=== PATIENT | female | born 1985 | race Caucasian/White ===

== ENCOUNTER 2021-04-04 17:17 | Emergency (ER) | payer OTHER, SELFPAY ==
[2021-04-04 17:31] VITALS: BP 128/98; PULSE 64; RESP 18; TEMP 36.9; O2SAT 100
[2021-04-04 17:32] VITALS: BP 128/98; PULSE 64; RESP 18; TEMP 36.9; O2SAT 100
--- NOTE | 2021-04-04 18:03 | ED.URI ---
HPI - URI/Sore Throat General Chief Complaint: Upper Respiratory Infection Stated Complaint: Sore throat Source: patient and RN notes reviewed Limitations: no limitations History of Present Illness HPI Narrative: The vaccinated patient, previously mostly healthy, presents with half week history of sore throat. She was treated for sinusitis with amoxicillin that she completed at the end of the first week of the month . She has no fever, earache, rash; no loss of taste/smell, CP, congestion, shortness of breath, vomiting/diarrhea. Related Data Allergies Allergy/AdvReac Type Severity Reaction Status Date / Time Sulfa (Sulfonamide Allergy Unknown Unknown Verified 04/04/21 17:54 Antibiotics) Review of Systems Review of Systems: The patient has been informed that they may have pre-hypertension or Hypertension based on a BP reading in the department. I recommend that the patient call the primary care provider listed on their discharge instructions or a physician of their choice this week to arrange follow up for further evaluation of possible pre-hypertension or Hypertension General/Constitutional: No weight loss,fever Eyes: N0: Redness,discharge Ears/Nose/Throat: No: Epistaxis,ear discharge Respiratory: Denies: Hemoptysis Gastrointestinal: No Vomiting, Bleeding-rectal Skin: No Lumps, eruption Neurologic: No Focal Weakness,Sz Hematologic: Denies: Petechiae/Purpura Psychiatric: No: Suicida ideationl All Other Systems: Reviewed and Negative PMFSH Family History Family History (Updated 04/08/18 @ 15:18 by DOCTOR UNKNOWN) Grandparent Diabetes mellitus Sibling Family history of mental disorder Depression Social History Social History Smoking status: Never smoker Second hand tobacco smoke exposure: No Alcohol intake: current Comments At time of signature, agree with nursing past medical, surgical, social and family history. There is no relevant family history pertinent to the presenting complaint Exam Narrative: General Appearance: Well appearing, Well nourished EYE: PERRLA, Conjunctiva clear Ears: Auditory canal normal, TM normal Nose: Rhinorrhea, Mucousal erythema Mouth/Throat: MM moist, Uvula midline, Pharyngeal erythema Neck: Supple, No adenopathy Respiratory: No respiratory distress, Breath sounds equal, Clear to auscultation Cardiovascular: RRR, No JVD Musculoskeletal: Non tender, Normal strength Skin: Warm, Dry Neurological: A&O x3, CN II-XII intact Psychiatric: Normal mood, Normal affect Course Vital Signs Vital signs: Vital Signs Temperature 98.4 F 04/04/21 17:31 Pulse Rate 64 04/04/21 17:31 Respiratory Rate 18 04/04/21 17:31 Blood Pressure 128/98 H 04/04/21 17:31 Pulse Oximetry 100 04/04/21 17:31 Temperature 98.4 F 04/04/21 17:32 Pulse Rate 64 04/04/21 17:32 Respiratory Rate 18 04/04/21 17:32 Blood Pressure 128/98 H 04/04/21 17:32 Pulse Oximetry 100 04/04/21 17:32 Discharge Plan Discharge Clinical Impression: Odynophagia Patient Disposition: Home, Self-Care Condition: Stable Instructions: Pharyngitis (ED) Prescriptions: New azithromycin 250 mg tablet See Rx Instructions .ROUTE .COMPLEX Qty: 6 RF: 0 lidocaine HCl [Lidocaine Viscous] 2 % solution 5 ml MUCOUS MEM QID PRN (Reason: pain) Qty: 100 RF: 0 Follow-up/Referrals: UNKNOWN,DOCTOR [Primary Care Provider] -
== END 2021-04-04 18:15 | disposition home or self-care (01) ==
PROVIDERS: Emergency Provider Emergency Medicine
DX: R13.10 Dysphagia, unspecified (principal)
CPT/HCPCS: 99213; G0463

== ENCOUNTER → 2023-06-25 07:49 | Outpatient (CLI) | payer OTHER, SELFPAY ==
--- NOTE | ~2023-06-25 | US_ITS ---
Abdominal Sonogram: Real-time sonographic imaging of the abdomen was performed. Clinical History: Abdominal pain Findings: The liver appears normal with no evidence of mass lesion or bile duct dilatation. Main por mercedes vein demonstrates normal direction of flow. The spleen is normal in size without evidence of foca l lesion. The gallbladder is well distended, and appears normal with no evidence of gallstone or wal l thickening. The common bile duct measures 3 mm. The visualized pancreas, aorta, and IVC are unrema rkable. The right kidney measures 9.9 cm in length and the left kidney measures 10.0 cm. There is n o hydronephrosis or renal calculus. Impression: Unremarkable abdominal ultrasound. Reviewed, dictated and finalized at location . ING AIDE Impression: Unremarkable abdominal ultrasound.
== END ==
PROVIDERS: PCP Family Medicine; Visit Provider Physician Assistant
DX: R10.9 Unspecified abdominal pain (principal)
CPT/HCPCS: 76700

== ENCOUNTER 2024-05-05 11:17 | Outpatient (CLI) | payer OTHER, SELFPAY ==
--- NOTE | ~2024-05-05 | MMUS_ITS ---
EXAMINATION: US breast RT limited, MM diagnostic pratik BI w agueda HISTORY: Palpable right breast abnormality TECHNIQUE: Additional 3-D tomosynthesis images of the right breast were performed and synthetic 2-D i mages were generated. CAD analysis was submitted and interpreted. High resolution Limited right breas t ultrasound was performed. COMPARISON: None BREAST PARENCHYMAL COMPOSITION: Dense: The breasts are extremely dense, which lowers the sensitivity of mammography. FINDINGS: MAMMOGRAPHIC FINDINGS: Dense: The breasts are extremely dense, which lowers the sensitivity of mammography. There is no mamm ographic evidence for malignancy in the left breast. There is a mass in the upper outer quadrant of t he right breast which is obscured by fibroglandular tissue. ULTRASOUND: Complete US of all 4 quadrants of the breast/s and retroareolar region was reviewed. There are multip le cysts in the upper outer quadrant of the right breast at 9, 11 and 12:00 positions, largest at 9:0 0, 3 cm from the nipple measuring 4.4 cm. No suspicious masses to suggest malignancy. IMPRESSION: 1. Multiple right breast cysts in the upper outer quadrant of the right breast, largest measuring 4.4 cm. This corresponds to the mammographic and palpable abnormality. No evidence for malignancy. 2. Routine yearly screening mammogram and regular clinical breast examination are recommended. BI-RADS Category 2: Benign finding(s). Reviewed, dictated and finalized at location B. IMPRESSION: 1. Multiple right breast cysts in the upper outer quadrant of the right breast, largest measuring 4.4 cm. This corresponds to the mammographic and palpable ab normality. No evidence for malignancy. 2. Routine yearly screening mammogram and regular clinical breast examination a re recommended. BI-RADS Category 2: Benign finding(s).
== END 2024-05-05 11:18 | disposition home or self-care (01) ==
LOC: ANHIMG 11:21
PROVIDERS: PCP Family Medicine; Visit Provider Obstetrics & Gynecology
DX: N63.10 Unspecified lump in the right breast, unspecified quadrant (principal); R92.2 Inconclusive mammogram; R92.343 Mammographic extreme density, bilateral breasts; N60.01 Solitary cyst of right breast
CPT/HCPCS: 76642; 77062; 77066; G0279